=== PATIENT | male | born 1980 | race Two or more races ===

== ENCOUNTER 2018-07-10 07:48 | Emergency (ER) | payer OTHER ==
[~2018-07-10] VITALS: Ht 180.3 cm; Wt 84.4 kg
[2018-07-10 07:52] VITALS: Ht 180.3 cm; Wt 84.4 kg
[2018-07-10 08:54] VITALS: BP 140/80
== END 2018-07-10 08:54 | disposition home or self-care (01) ==
LOC: ED 07:48
PROC: 3E023NZ Introduction of Analgesics, Hypnotics, Sedatives into Muscle, Percutaneous Approach (ICD-10-PCS; principal; 2018-07-10)
DX: S46.311A Strain of muscle, fascia and tendon of triceps, right arm, initial encounter (principal); X50.0XXA Overexertion from strenuous movement or load, initial encounter; Y92.69 Other specified industrial and construction area as the place of occurrence of the external cause
CPT/HCPCS: J1885